=== PATIENT | male | born 1990 | race Two or more races ===

== ENCOUNTER 2018-10-20 13:32 | Emergency (ER) | payer MEDICAID ==
[~2018-10-20] VITALS: Ht 160 cm; Wt 72.5 kg
[~2018-10-20 13:32] MED LIST: CIP500T PO; CYCL-1 PO; NO HOME MEDS
[2018-10-20 13:46] VITALS: BP 149/95
[2018-10-20] MEDS ORDERED: NEOM10DR45 OT (13:55)
== END 2018-10-20 14:04 | disposition home or self-care (01) ==
LOC: ER 13:32
DX: H60.92 Unspecified otitis externa, left ear (principal); Z56.0 Unemployment, unspecified
CPT/HCPCS: 99283

== ENCOUNTER 2021-05-07 16:40 | Emergency (ER) | payer MEDICAID ==
[~2021-05-07] VITALS: Ht 160 cm; Wt 70.5 kg
[2021-05-07 17:17] VITALS: BP 156/113
[2021-05-07] MEDS ORDERED: ketorolac tromethamine 15mg/ml inj. IM ONE (18:15)
[2021-05-07] MEDS ORDERED: IBUP-1984 PO (18:16)
[2021-05-07] MEDS ORDERED: CYCL-1 PO (18:16)
== END 2021-05-07 18:33 | disposition home or self-care (01) ==
LOC: ER 16:44
DX: M54.2 Cervicalgia (principal); M25.511 Pain in right shoulder; V87.7XXA Person injured in collision between other specified motor vehicles (traffic), initial encounter; Y93.89 Activity, other specified; Y92.89 Other specified places as the place of occurrence of the external cause; Y99.8 Other external cause status
CPT/HCPCS: 70450; 71046; 72125; 99285

== ENCOUNTER 2021-05-13 17:08 | Emergency (ER) | payer MEDICAID ==
[~2021-05-13] VITALS: Ht 160 cm; Wt 75.1 kg
[~2021-05-13 17:08] MED LIST changes: +IBUP-1984 PO
[2021-05-13 17:30] VITALS: BP 152/97
[2021-05-13] MEDS ORDERED: ketorolac tromethamine 15mg/ml inj. IM ONE (22:55)
[2021-05-13] MEDS ORDERED: orphenadrine citrate 60mg/2ml inj. IM ONE (22:55)
[2021-05-13 23:12] LABS: CLARITY,URINE CLEAR (Clear); COLOR,URINE YELLOW (Yellow); GLUCOSE, URINE NEGATIVE (Neg); PH,URINE 6.5 (4.8-8.0); PROTEIN,URINE NEGATIVE (Neg); UA COLLECTION TYPE NON-SPECIFIED
[2021-05-13 23:13] LABS: KETONES,URINE TRACE mg/dl (Neg); LEUKOCYTE ESTERASE ,URINE NEGATIVE (Neg); NITRITES, URINE NEGATIVE (Neg); OCCULT BLOOD,URINE TRACE-LYSED (Neg); UROBILINOGEN,URINE 0.2 E.U/dL (0.2-1.0)
[2021-05-13 23:14] LABS: AMORPHOUS PHOSPHATES 1+; BACTERIA,URINE FEW /HPF (Neg); RBC,URINE 0-2 /HPF (0-2); SQUAMOUS EPITHELIAL CELL,UR FEW /LPF (FEW); WBC,URINE 0-4 /HPF (0-4)
[2021-05-13] MEDS ORDERED: NAPR-56 PO (23:38)
== END 2021-05-13 23:50 | disposition home or self-care (01) ==
LOC: ER 17:09
DX: S29.012A Strain of muscle and tendon of back wall of thorax, initial encounter (principal); M54.6 Pain in thoracic spine; Z56.0 Unemployment, unspecified; Z79.2 Long term (current) use of antibiotics; Z79.899 Other long term (current) drug therapy; V98.8XXA Other specified transport accidents, initial encounter; Y93.89 Activity, other specified; Y92.89 Other specified places as the place of occurrence of the external cause; Y99.8 Other external cause status
CPT/HCPCS: 72070; 81001; 96372; 99284; J1885; J2360

== ENCOUNTER 2021-12-22 11:46 | Emergency (ER) | payer MEDICAID ==
[~2021-12-22] VITALS: Ht 160 cm; Wt 77.3 kg
[~2021-12-22 11:46] MED LIST changes: -IBUP-1984 PO
[2021-12-22 12:50] LABS: BASOPHILS # (AUTO) 0.1 X10'3 (0-0.2); EOSINOPHILS # (AUTO) 0.3 X10'3 (0-0.9); EOSINOPHILS % (AUTO) 3.1 % (0-6); HEMATOCRIT 45.2 % (42.0-52.0); HEMOGLOBIN 14.3 g/dl (14.0-17.9); LYMPHOCYTES # (AUTO) 2.4 X10'3 (1.1-4.8); LYMPHOCYTES % (AUTO) 28.3 % (21-51); MEAN CORPUSCULAR HGB CONC 31.7 g/dL (33.0-36.5); MEAN CORPUSCULAR VOLUME 66.1 FL (78-98); MEAN PLATELET VOLUME 8.2 FL (7.4-10.4); MONOCYTES # (AUTO) 0.6 X10'3 (0-0.9); NEUTROPHILS # (AUTO) 5.2 X10'3 (1.8-7.7); NEUTROPHILS % (AUTO) 60.6 % (42-75); PLATELET COUNT 316 X10'3 (140-440); RED BLOOD COUNT 6.84 X10'6 (4.70-6.10); RED CELL DISTRIBUTION WIDTH 15.1 % (11.5-14.5); WHITE BLOOD COUNT 8.5 X10'3 (4.5-11.0)
[2021-12-22 13:03] LABS: ALANINE AMINOTRANSFERASE 58 U/L (12-78); ALBUMIN 4.3 G/DL (3.4-5.0); ALKALINE PHOSPHATASE 90 IU/L (46-116); ANION GAP 7 (8-16); ASPARTATE AMINO TRANSFERASE 26 U/L (10-37); BILIRUBIN,TOTAL 1.4 MG/DL (0.1-1.0); BLOOD UREA NITROGEN 10 MG/DL (7-18); CALCIUM 9.5 MG/DL (8.5-10.1); CHLORIDE 104 MMOL/L (99-107); CREATININE 1.11 MG/DL (0.60-1.10); GLUCOSE 108 MG/DL (70-104); POTASSIUM 3.9 MMOL/L (3.5-5.1); SODIUM 138 MMOL/L (135-145); TOTAL CARBON DIOXIDE 27.1 MMOL/L (24-32); TOTAL PROTEIN 8.4 G/DL (6.4-8.2); eGFR 78 ML/MIN
[2021-12-22] MEDS ORDERED: sucralfate 1 gm tablet PO ONE (15:50)
[2021-12-22] MEDS ORDERED: mag hydrox/Alum hydrox/simeth 30ml oral suspension PO ONE (15:50)
[2021-12-22] MEDS ORDERED: LIDOcaine Viscous 15ml cup MM ONE (15:50)
[2021-12-22] MEDS ORDERED: cloNIDine 0.1 mg tablet PO ONE (16:10)
[2021-12-22 16:48] VITALS: BP 140/102
== END 2021-12-22 16:50 | disposition home or self-care (01) ==
LOC: ER 11:47
DX: R07.2 Precordial pain (principal); R10.13 Epigastric pain; R51.9 Headache, unspecified; Z79.899 Other long term (current) drug therapy; Z79.2 Long term (current) use of antibiotics; Z56.0 Unemployment, unspecified
CPT/HCPCS: 36415; 71045; 80053; 83880; 84484; 85025; 93005; 99285